=== PATIENT | male | born 1985 | race Caucasian/White ===

== ENCOUNTER 2019-07-10 14:01 | Outpatient (CLI) | payer OTHER, SELFPAY ==
--- NOTE | ~2019-07-10 | CT_ITS ---
EXAMINATION: CT abdomen pelvis w con EXAM DATE: 07/10/2019 15:05 INDICATION: Crohn's disease and small intestine. Rectal bleeding. TECHNIQUE: Spiral CT of the abdomen and pelvis was performed following intravenous injection of 100 m L Omnipaque 350. Axial, coronal and sagittal images were reviewed. The dose-length product (DLP) fo r this examination was 736.97 mGy-cm. The exposure was tailored according to patient size (auto mA e xposure control), and iterative reconstruction (ASIR) was used as additional dose reduction technique . Comparison is made to prior examination from 04/08/2013. FINDINGS: Free intraperitoneal air has resolved. The liver, spleen, adrenal glands and pancreas are unremarkable. Gallbladder not identified, patient likely has had cholecystectomy. Portal and spleni c veins are patent. Kidneys enhance symmetrically. There is no hydronephrosis. The prostate is un remarkable. The bladder is unremarkable. There is no retroperitoneal or pelvic lymphadenopathy. Severely distended fluid-filled stomach. There is been cecal resection with unremarkable ileocecal an astomosis site. Colonic fluid. No free intraperitoneal gas. The heart is normal in size. There a re no pericardial or pleural effusions. The lung bases are unremarkable. The bones are unremarkable . IMPRESSION: 1. Colonic fluid, distended stomach. No colonic wall thickening or small bowel dilation. 2. Surgical changes from cecal resection, cholecystectomy. Reviewed, dictated and finalized at location A.
--- NOTE | ~2019-07-10 | XR_ITS ---
EXAMINATION: XR chest 2V DATE: 07/10/2019 14:47 INDICATION: Crohn disease. High risk medication use. TECHNIQUE: Frontal and lateral views of the chest were obtained. COMPARISON: Chest 2 views 12/07/2016 FINDINGS: The chest demonstrates clear lungs without pneumonia, pleural effusion, or pneumothorax. Th e heart size is normal. There are surgical clips in right abdomen. IMPRESSION: 1. No acute cardiopulmonary disease. Reviewed, dictated and finalized at location A.
[2019-07-10 14:55] LABS: Estimated Glomerular Filt Rate > 60
== END 2019-07-10 14:02 | disposition home or self-care (01) ==
LOC: ANHIMG 14:11
PROVIDERS: PCP Internal Medicine; Visit Provider Internal Medicine Gastroenterology
DX: K50.00 Crohn's disease of small intestine without complications (principal); K62.5 Hemorrhage of anus and rectum; Z79.899 Other long term (current) drug therapy
CPT/HCPCS: 36415; 71046; 74177; Q9967

== ENCOUNTER 2019-07-25 00:27 | Outpatient (CLI) | payer OTHER, SELFPAY ==
[2019-07-25 18:12] LABS: SARS-CoV-2 RNA PCR Negative
== END 2019-07-25 00:28 | disposition home or self-care (01) ==
LOC: ANHCOVIDDT 00:27
PROVIDERS: PCP Internal Medicine; Visit Provider Internal Medicine Gastroenterology
DX: Z20.828 Contact with and (suspected) exposure to other viral communicable diseases (principal); Z01.812 Encounter for preprocedural laboratory examination
CPT/HCPCS: 87635; C9803; U0003

== ENCOUNTER 2019-07-27 02:13 | Day surgery (SDC) | payer OTHER, SELFPAY ==
[2019-07-20 13:39] VITALS: BMI 28.7
[2019-07-27 08:10] VITALS: BP 120/78; PULSE 95; RESP 14; TEMP 36.4; O2SAT 98; BMI 28.6
[2019-07-27] MEDS: LACTATED RINGERS 1,000 ML 150 ML IV CONT (08:24)
--- NOTE | 2019-07-27 08:29 | PM.IMHP ---
H&P: HPI History of Present Illness Chief complaint: abnormal CT of the Abdomen, Crohns Narrative: Reason for visit colonoscopy And EGD. This very pleasant gentleman seen in consultation at the request of the primary. Impression: Crohn's disease status post ileocolectomy. Abnormal CT imaging with dilated stomach. We will evaluate for underlying peptic ulcer disease and outlet obstruction. Hypertension. Recommendation: EGD and colonoscopy. History: This very pleasant gentleman is a history of Crohn's disease. He is status post ileocolectomy. He is presently taking Stelara for his Crohn's disease. He continues to have occasional rectal bleeding and diarrhea. Fever, chills, night sweats, mouth sores and rashes or tonight. Significant abdominal pain, nausea, vomiting, hematemesis, dysphagia and odynophagia deny. Patient did undergo CT imaging which revealed evidence of dilated stomach and evidence of previous ileal colectomy. He is here for EGD and colonoscopy. Physical examination: General: very pleasant patient in no acute distress. HEENT: Head was normocephalic sclerae is clear mouth without masses neck was supple. Heart: Rate rhythm regular without S3 or S4. Lungs: CTA. Abdomen: Soft with no guarding or rigidity. Bowel sounds were active. Neurologic: Cranial nerves 2 through 12 intact. No focal defects. No clonus. Musculoskeletal system: Revealed no joint tenderness or swelling no muscle atrophy. Extremities: Reveal no significant edema. Skin: Warm and dry with normal turgor. Mental status: intact. Patient is alert and oriented. Review of Systems Review of Systems: All systems reviewed & are unremarkable except as noted in HPI and below PMFSH Past Medical History Medical History (Updated 07/27/19 @ 08:06 by Robert Wills DO) Crohn's disease HTN (hypertension) Surgical History Surgical History (Updated 07/27/19 @ 08:28 by Robert Wills DO) S/P colectomy ileal-colectomy Family History Family History (Updated 10/05/13 @ 07:13 by DOCTOR UNKNOWN) Grandparent Cerebrovascular accident Family history of autoimmune disorder Mother Hypertension Father Family history of colitis Other Family history of gastrointestinal disorder Social History Social History Smoking status: Never smoker Alcohol intake: current Meds Home Medications and Allergies Home Medications Medication Instructions Recorded Confirmed Type multivitamin 1 tablet PO DAILY 01/10/19 07/27/19 History ustekinumab 90 mg/mL subcutaneous 90 mg SUB-Q ONCE 01/10/19 07/27/19 History syringe lisinopril 20 mg tablet 20 mg PO DAILY #90 tablet 06/28/19 07/27/19 Rx mecobalamin (vitamin B12) 5,000 mcg PO DAILY 07/20/19 07/27/19 History Allergies Allergy/AdvReac Type Severity Reaction Status Date / Time No Known Allergies Allergy Verified 07/27/19 08:06 Vital Signs Vital Signs - 24 hr 07/27/19 08:10 Temperature 36.4 C L Pulse Rate 95 Respiratory Rate 14 Blood Pressure 120/78 Pulse Oximetry 98
--- NOTE | 2019-07-27 08:37 | WPDANESEPPF ---
Anes - Initial Pre Proc Eval Procedure: Operation Date: 07/27/19 09:30 Proposed Procedures p Esophagogastroduodenoscopy & Colonoscopy - Robert Wills DO Date/Time: 07/27/19 08:37 Surgeon: Robert Wills DO Pre Op Diagnosis: abnormal CT of the Abdomen, Crohns Patient Data Age: 34 Gender: M Height: 6 ft Weight: 95.9 kg Last Vital Signs Temp 97.5 F L 07/27/19 08:10 Pulse 95 07/27/19 08:10 Resp 14 07/27/19 08:10 BP 120/78 07/27/19 08:10 Pulse Ox 98 07/27/19 08:10 Allergies Allergy/AdvReac Type Severity Reaction Status Date / Time No Known Allergies Allergy Verified 07/27/19 08:06 Home Medications Medication Instructions Recorded Confirmed Type multivitamin 1 tablet PO DAILY 01/10/19 07/27/19 History ustekinumab 90 mg/mL subcutaneous 90 mg SUB-Q ONCE 01/10/19 07/27/19 History syringe lisinopril 20 mg tablet 20 mg PO DAILY #90 tablet 06/28/19 07/27/19 Rx mecobalamin (vitamin B12) 5,000 mcg PO DAILY 07/20/19 07/27/19 History Patient hx anesthesia problems: none Family hx anesthesia problems: none [facility] Past Medical History Medical History (Updated 07/27/19 @ 08:06 by Robert Wills DO) Crohn's disease HTN (hypertension) Surgical History Surgical History (Updated 07/27/19 @ 08:28 by Robert Wills DO) S/P colectomy ileal-colectomy Family History Family History (Updated 10/05/13 @ 07:13 by DOCTOR UNKNOWN) Grandparent Cerebrovascular accident Family history of autoimmune disorder Mother Hypertension Father Family history of colitis Other Family history of gastrointestinal disorder Social History Social History Smoking status: Never smoker Alcohol intake: current Anes - Eval Final PreProcedure Day of Procedure 07/27/19 08:37 Patient weight: normal Heart: regular rate and rhythm Lungs: clear to auscultation Airway: Mallampati scale class II Neurological: alert and oriented Last oral intake: >/= 8 hours ASA classification: II Emergent: no Anesthetic plan: proceed Anesthesia type and monitoring: general GIVS and standard monitoring Informed Consent: The patient's anesthetic plan and its attendant risks and benefits were discussed with the patient/family/POA. Questions were solicited and answers provided to the satisfaction of the patient/family/POA.
[2019-07-27 09:16] VITALS: BP 98/66; PULSE 99; RESP 19; O2SAT 96
[2019-07-27 09:26] VITALS: BP 113/69; PULSE 95; RESP 19; O2SAT 97
[2019-07-27 09:36] VITALS: BP 103/71; PULSE 95; RESP 19; O2SAT 97
== END 2019-07-27 09:54 | disposition home or self-care (01) ==
PROVIDERS: PCP Internal Medicine; Visit Provider Internal Medicine Gastroenterology
PROC: 0DJ08ZZ Inspection of Upper Intestinal Tract, Via Natural or Artificial Opening Endoscopic (ICD-10-PCS; CPT 43235; principal; 2019-07-27 09:30)
DX: K28.9 Gastrojejunal ulcer, unspecified as acute or chronic, without hemorrhage or perforation (principal); K64.8 Other hemorrhoids; K25.9 Gastric ulcer, unspecified as acute or chronic, without hemorrhage or perforation; K52.9 Noninfective gastroenteritis and colitis, unspecified; K29.50 Unspecified chronic gastritis without bleeding; K44.9 Diaphragmatic hernia without obstruction or gangrene; K50.90 Crohn's disease, unspecified, without complications; Z98.0 Intestinal bypass and anastomosis status; Z90.49 Acquired absence of other specified parts of digestive tract; I10 Essential (primary) hypertension
CPT/HCPCS: 45380; 43239; 87081; 88305; J2704; J7120

== ENCOUNTER 2019-11-01 08:16 | Outpatient (CLI) | payer OTHER, SELFPAY ==
[2019-11-01 09:30] LABS: HIV 1/2 Ab P24 Ag Result Negative (Negative)
== END 2019-11-01 08:17 | disposition home or self-care (01) ==
PROVIDERS: PCP Internal Medicine; Visit Provider Internal Medicine
DX: A64 Unspecified sexually transmitted disease (principal)
CPT/HCPCS: 36415; 86703; G0432

== ENCOUNTER 2019-12-12 00:57 | Outpatient (CLI) | payer OTHER, SELFPAY ==
[2019-12-12 20:51] LABS: SARS-CoV-2 RNA PCR Negative
== END 2019-12-12 00:58 | disposition home or self-care (01) ==
LOC: ANHCOVIDDT 00:57
PROVIDERS: PCP Internal Medicine; Visit Provider Internal Medicine Gastroenterology
DX: Z01.812 Encounter for preprocedural laboratory examination (principal); Z20.828 Contact with and (suspected) exposure to other viral communicable diseases
CPT/HCPCS: 87635; C9803; U0003

== ENCOUNTER 2019-12-14 01:39 | Day surgery (SDC) | payer OTHER, SELFPAY ==
[2019-12-06 14:07] VITALS: BMI 29.0
--- NOTE | 2019-12-14 08:33 | WPDANESEPPF ---
Anes - Initial Pre Proc Eval Procedure: Operation Date: 12/14/19 09:30 Proposed Procedures p Esophagogastroduodenoscopy - Robert Wills DO Date/Time: 12/14/19 08:33 Surgeon: Robert Wills DO Pre Op Diagnosis: Gastritis Patient Data Age: 34 Gender: M Height: 1.83 m Weight: 97 kg Allergies Allergy/AdvReac Type Severity Reaction Status Date / Time No Known Allergies Allergy Verified 12/06/19 14:05 Home Medications Medication Instructions Recorded Confirmed Type multivitamin 1 tablet PO DAILY 01/10/19 12/06/19 History ustekinumab 90 mg/mL subcutaneous See Rx Instructions .ROUTE .COMPLEX 01/10/19 12/06/19 History syringe lisinopril 20 mg tablet 20 mg PO DAILY #90 tablet 06/28/19 12/06/19 Rx mecobalamin (vitamin B12) 5,000 mcg PO DAILY 07/20/19 12/06/19 History hydrocortisone [Anusol-HC] 1 applic [place] DAILY PRN 07/27/19 12/06/19 History omeprazole 40 mg PO DAILY 07/27/19 12/06/19 History calcium 600 mg PO BID 12/06/19 12/06/19 History Patient hx anesthesia problems: none Family hx anesthesia problems: none PMFSH Past Medical History Medical History (Updated 08/29/19 @ 13:54 by Price Sin MD) Crohn's disease Gastric ulcer HTN (hypertension) Surgical History Surgical History (Updated 07/27/19 @ 08:28 by Robert Wills DO) S/P colectomy ileal-colectomy Family History Family History (Updated 10/05/13 @ 07:13 by DOCTOR UNKNOWN) Grandparent Cerebrovascular accident Family history of autoimmune disorder Mother Hypertension Father Family history of colitis Other Family history of gastrointestinal disorder Social History Social History Smoking status: Never smoker Alcohol intake: current Drinks per week: 3 Living arrangements: alone Gender identity (if verbalized by the patient): Male Spiritual care concerns: No Anes - Eval Final PreProcedure Day of Procedure 12/14/19 08:33 Patient weight: overweight Heart: regular rate and rhythm Lungs: clear to auscultation and normal air movement Airway: Mallampati scale class II Neurological: alert and oriented Last oral intake: >/= 8 hours ASA classification: II Emergent: no Anesthetic plan: proceed Anesthesia type and monitoring: general GIVS Informed Consent: The patient's anesthetic plan and its attendant risks and benefits were discussed with the patient/family/POA. Questions were solicited and answers provided to the satisfaction of the patient/family/POA.
[2019-12-14 08:38] VITALS: BP 129/74; PULSE 68; RESP 15; TEMP 36.2; O2SAT 100; BMI 29.2
[2019-12-14] MEDS: LACTATED RINGERS 1,000 ML 150 ML IV CONT (08:49)
--- NOTE | 2019-12-14 08:57 | PM.IMHP ---
H&P: HPI History of Present Illness Date/Time: 12/14/19 08:57 Chief complaint: Gastritis Narrative: Reason for visit is EGD. This very pleasant gentleman seen in consultation at the request of the primary physician. Impression: History gastric ulcer disease. The patient is here to assess for healing. Crohn's disease. Hypertension. Recommendation: EGD. History: This very pleasant gentleman has a history gastric ulcer disease. He is presently on treatment. He is here to review systems negative at this time. He does have history of Crohn's disease also. He is here for endoscopic evaluation to assess for healing of his gastric ulcer disease. Physical examination: General: very pleasant patient in no acute distress. HEENT: Head was normocephalic sclerae is clear mouth without masses neck was supple. Heart: Rate rhythm regular without S3 or S4. Lungs: CTA. Abdomen: Soft with no guarding or rigidity. Bowel sounds were active. Neurologic: Cranial nerves 2 through 12 intact. No focal defects. No clonus. Musculoskeletal system: Revealed no joint tenderness or swelling no muscle atrophy. Extremities: Reveal no significant edema. Skin: Warm and dry with normal turgor. Mental status: intact. Patient is alert and oriented. Review of Systems Review of Systems: All systems reviewed & are unremarkable except as noted in HPI and below PMFSH Past Medical History Medical History (Updated 08/29/19 @ 13:54 by Price Sin MD) Crohn's disease Gastric ulcer HTN (hypertension) Surgical History Surgical History (Updated 07/27/19 @ 08:28 by Robert Wills DO) S/P colectomy ileal-colectomy Family History Family History (Updated 10/05/13 @ 07:13 by DOCTOR UNKNOWN) Grandparent Cerebrovascular accident Family history of autoimmune disorder Mother Hypertension Father Family history of colitis Other Family history of gastrointestinal disorder Social History Social History Smoking status: Never smoker Alcohol intake: current Drinks per week: 3 Living arrangements: alone Gender identity (if verbalized by the patient): Male Spiritual care concerns: No Meds Home Medications and Allergies Home Medications Medication Instructions Recorded Confirmed Type multivitamin 1 tablet PO DAILY 01/10/19 12/14/19 History ustekinumab 90 mg/mL subcutaneous See Rx Instructions .ROUTE .COMPLEX 01/10/19 12/14/19 History syringe lisinopril 20 mg tablet 20 mg PO DAILY #90 tablet 06/28/19 12/14/19 Rx mecobalamin (vitamin B12) 5,000 mcg PO DAILY 07/20/19 12/14/19 History hydrocortisone [Anusol-HC] 1 applic [place] DAILY PRN 07/27/19 12/14/19 History omeprazole 40 mg PO DAILY 07/27/19 12/14/19 History calcium 600 mg PO BID 12/06/19 12/14/19 History Allergies Allergy/AdvReac Type Severity Reaction Status Date / Time No Known Allergies Allergy Verified 12/06/19 14:05 Vital Signs Vital Signs - 24 hr 12/14/19 08:38 Temperature 36.2 C L Pulse Rate 68 Respiratory Rate 15 Blood Pressure 129/74 Pulse Oximetry 100
[2019-12-14 09:52] VITALS: BP 111/69; PULSE 70; RESP 17; O2SAT 100
[2019-12-14 10:02] VITALS: BP 106/68; PULSE 81; RESP 21; O2SAT 99
[2019-12-14 10:12] VITALS: BP 108/72; PULSE 81; RESP 18; O2SAT 99
--- NOTE | 2019-12-14 11:06 | SUR.PHASEII ---
1020 abrasion noted to inside of bottom lip.
== END 2019-12-14 10:30 | disposition home or self-care (01) ==
PROVIDERS: PCP Internal Medicine; Visit Provider Internal Medicine Gastroenterology
PROC: 0DJ08ZZ Inspection of Upper Intestinal Tract, Via Natural or Artificial Opening Endoscopic (ICD-10-PCS; CPT 43235; principal; 2019-12-14 09:30)
DX: Z09 Encounter for follow-up examination after completed treatment for conditions other than malignant neoplasm (principal); K29.80 Duodenitis without bleeding; Z87.11 Personal history of peptic ulcer disease; K50.90 Crohn's disease, unspecified, without complications; I10 Essential (primary) hypertension; Z90.49 Acquired absence of other specified parts of digestive tract; Z98.0 Intestinal bypass and anastomosis status
CPT/HCPCS: 43239; 87081; J2704; J7120

== ENCOUNTER 2020-02-08 12:51 | Outpatient (CLI) | payer OTHER, SELFPAY ==
[2020-02-08 13:26] LABS: Magnesium 1.7 mg/dL (1.6-2.3)
[2020-02-08 14:06] LABS: Vitamin D 25 Hydroxy 51.6 ng/mL
== END 2020-02-08 12:52 | disposition home or self-care (01) ==
PROVIDERS: PCP Internal Medicine; Visit Provider Internal Medicine Gastroenterology
DX: E55.9 Vitamin D deficiency, unspecified (principal)
CPT/HCPCS: 36415; 82306; 83735

== ENCOUNTER 2020-12-17 00:16 | Day surgery (SDC) | payer OTHER, SELFPAY ==
[2020-11-27 14:15] VITALS: BMI 28.0
--- NOTE | 2020-12-16 14:04 | WPDANESEPPF ---
Anes - Initial Pre Proc Eval Procedure: Operation Date: 12/17/20 07:30 Proposed Procedures p Colonoscopy - Siva De La Rosa MD Date/Time: 12/16/20 14:04 Surgeon: Siva De La Rosa MD Pre Op Diagnosis: crohn's disease Patient Data Age: 35 Gender: M Height: 1.83 m Weight: 93.63 kg Allergies Allergy/AdvReac Type Severity Reaction Status Date / Time No Known Allergies Allergy Verified 12/17/20 06:24 Home Medications Medication Instructions Recorded Confirmed Type multivitamin 1 tablet PO DAILY 01/10/19 11/27/20 History mecobalamin (vitamin B12) 5,000 mcg PO DAILY 07/20/19 11/27/20 History hydrocortisone [Anusol-HC] 1 applic [place] DAILY PRN 07/27/19 11/27/20 History omeprazole 40 mg PO DAILY 07/27/19 11/27/20 History calcium 600 mg PO DAILY 12/06/19 11/27/20 History lisinopril 20 mg tablet 20 mg PO DAILY #90 tablet 06/24/20 11/27/20 Rx cholecalciferol (vitamin D3) 25 25 mcg PO DAILY 07/02/20 11/27/20 History mcg (1,000 unit) capsule folic acid 1 mg tablet 1 mg PO DAILY #1 tablet 07/02/20 11/27/20 Rx omega 3-ksa-mgh-fish oil 1,200 mg 2 cap PO DAILY cap 07/02/20 11/27/20 History (144 mg-216 mg) capsule ustekinumab 90 mg/mL subcutaneous See Rx Instructions .ROUTE .COMPLEX 07/02/20 11/27/20 History syringe fenofibrate 54 mg tablet 54 mg PO DAILY #90 tablet 09/06/20 11/27/20 Rx Patient hx anesthesia problems: none Family hx anesthesia problems: none Results Review: All pre-operative results and documents have been reviewed as part of the pre-operative evaluation. [facility] Past Medical History Medical History (Updated 11/07/20 @ 10:04 by Siva De La Rosa MD) Crohn's disease Crohn's disease of ileum Gastric ulcer HTN (hypertension) Surgical History Surgical History (Updated 11/07/20 @ 10:04 by Siva De La Rosa MD) S/P colectomy ileal-colectomy Family History Family History Grandparent Cerebrovascular accident Family history of autoimmune disorder Mother Hypertension Father Family history of colitis Other Family history of gastrointestinal disorder Social History Social History (Updated 11/07/20 @ 09:29 by Laura Moore CMA) Smoking status: Never smoker Second hand tobacco smoke exposure: No Alcohol intake: current Drinks per week: 3 Alcohol use details: socially Substance use: never Substance use type: does not use Living arrangements: with family Gender identity (if verbalized by the patient): Male Spiritual care concerns: No Anes - Eval Final PreProcedure Day of Procedure 12/16/20 14:04 Patient weight: overweight Heart: regular rate and rhythm Lungs: clear to auscultation and normal air movement Airway: Mallampati scale class II Neurological: alert and oriented Last oral intake: >/= 8 hours ASA classification: II Emergent: no Anesthetic plan: proceed Anesthesia type and monitoring: general GIVS Results Review: All pre-operative results and documents have been reviewed as part of the pre-operative evaluation. Informed Consent: The patient's anesthetic plan and its attendant risks and benefits were discussed with the patient/family/POA. Questions were solicited and answers provided to the satisfaction of the patient/family/POA.
[2020-12-17 06:26] VITALS: BP 131/84; PULSE 63; RESP 18; TEMP 36.1; O2SAT 100
[2020-12-17] MEDS: LACTATED RINGERS 1,000 ML 150 ML IV CONT (06:37)
--- NOTE | 2020-12-17 07:31 | PM.HPGS ---
History of Present Illness History of Present Illness Consent: Risks, benefits, and alternatives have been discussed and questions answered. Patient agrees to proceed with procedure. Chief complaint: crohn's disease Narrative: Everett Yarbrough is a 35 year old male here for colonoscopy, he was diagnosed with Crohn's at 12yo and had partial sb resection, in the past on humira and for last few years on stelara. Last colonoscopy 1 year ago showed ulcerated site at ileocolonic site Review of Systems Constitutional: Constitutional: Denies headache(s) and Denies weakness Eyes: Eyes: Denies blurry vision ENT: Reports Normal hearing present, Denies headache(s) and Denies neck pain Cardiovascular: Cardiovascular: Denies chest pain and Denies dyspnea Respiratory: Respiratory: Denies dyspnea Gastrointestinal: Gastrointestinal: Reports no additional gastrointestinal complaints Genitourinary: Genitourinary: Denies dysuria Musculoskeletal: Musculoskeletal: Denies neck pain Integumentary/Breasts: Skin/Breast: Denies dry skin Neurologic: Reports Normal hearing present, Denies headache(s) and Denies weakness Psychiatric: Psychiatric: Denies anxiety Endocrine: Endocrine: Denies change in body appearance Hematologic/Lymphatic: Hematologic/Lymphatic: Denies easy bleeding Allergic/Immunologic: Allergic/Immunologic: Denies urticaria PMFSH Past Medical History Medical History (Updated 11/07/20 @ 10:04 by Siva De La Rosa MD) Crohn's disease Crohn's disease of ileum Gastric ulcer HTN (hypertension) Surgical History Surgical History (Updated 11/07/20 @ 10:04 by Siva De La Rosa MD) S/P colectomy ileal-colectomy Family History Family History Grandparent Cerebrovascular accident Family history of autoimmune disorder Mother Hypertension Father Family history of colitis Other Family history of gastrointestinal disorder Social History Social History (Updated 11/07/20 @ 09:29 by Laura Moore CMA) Smoking status: Never smoker Second hand tobacco smoke exposure: No Alcohol intake: current Drinks per week: 3 Alcohol use details: socially Substance use: never Substance use type: does not use Living arrangements: with family Gender identity (if verbalized by the patient): Male Spiritual care concerns: No Meds Home Medications and Allergies Home Medications Medication Instructions Recorded Confirmed Type multivitamin 1 tablet PO DAILY 01/10/19 11/27/20 History mecobalamin (vitamin B12) 5,000 mcg PO DAILY 07/20/19 11/27/20 History hydrocortisone [Anusol-HC] 1 applic [place] DAILY PRN 07/27/19 11/27/20 History omeprazole 40 mg PO DAILY 07/27/19 11/27/20 History calcium 600 mg PO DAILY 12/06/19 11/27/20 History lisinopril 20 mg tablet 20 mg PO DAILY #90 tablet 06/24/20 11/27/20 Rx cholecalciferol (vitamin D3) 25 25 mcg PO DAILY 07/02/20 11/27/20 History mcg (1,000 unit) capsule folic acid 1 mg tablet 1 mg PO DAILY #1 tablet 07/02/20 11/27/20 Rx omega 6-mws-byh-fish oil 1,200 mg 2 cap PO DAILY cap 07/02/20 11/27/20 History (144 mg-216 mg) capsule ustekinumab 90 mg/mL subcutaneous See Rx Instructions .ROUTE .COMPLEX 07/02/20 11/27/20 History syringe fenofibrate 54 mg tablet 54 mg PO DAILY #90 tablet 09/06/20 11/27/20 Rx Allergies Allergy/AdvReac Type Severity Reaction Status Date / Time No Known Allergies Allergy Verified 12/17/20 06:24 Vital Signs Vital Signs - 24 hr 12/17/20 06:26 Temperature 97 F L Pulse Rate 63 Respiratory Rate 18 Blood Pressure 131/84 Pulse Oximetry 100 Exam Const: General: comfortable and no acute distress HENMT: General nose exam: Normal nares present Eyes: General: appearance normal, both eyes and all related structures Neck: Neck: no JVD Resp: Auscultation: clear to auscultation bilaterally Cardio: Rate: regular rate Rhythm: re
[2020-12-17 07:49] VITALS: BP 101/49; PULSE 66; RESP 18; O2SAT 100
[2020-12-17 07:59] VITALS: BP 120/76; PULSE 60; RESP 14; O2SAT 100
[2020-12-17 08:09] VITALS: BP 133/83; PULSE 67; RESP 17; O2SAT 100
== END 2020-12-17 08:14 | disposition home or self-care (01) ==
PROVIDERS: PCP Internal Medicine; Visit Provider Internal Medicine Gastroenterology
PROC: 0DJD8ZZ Inspection of Lower Intestinal Tract, Via Natural or Artificial Opening Endoscopic (ICD-10-PCS; CPT 45378; principal; 2020-12-17 07:30)
DX: K50.90 Crohn's disease, unspecified, without complications (principal); Z98.0 Intestinal bypass and anastomosis status; Z90.49 Acquired absence of other specified parts of digestive tract; I10 Essential (primary) hypertension; Z87.11 Personal history of peptic ulcer disease
CPT/HCPCS: 45380; 88305; J2704; J7120

== ENCOUNTER → 2021-01-11 01:08 | Outpatient (CLI) | payer OTHER, SELFPAY ==
[2021-01-11 12:24] LABS: Influenza Control Positive
[2021-01-11 18:54] LABS: SARS-CoV-2 RNA PCR Positive
== END ==
PROVIDERS: PCP Internal Medicine; Visit Provider Internal Medicine
DX: U07.1 COVID-19 (principal); R68.89 Other general symptoms and signs
CPT/HCPCS: 87804; C9803; U0003; U0005

== ENCOUNTER 2021-03-19 09:06 | Outpatient (CLI) | payer OTHER, SELFPAY ==
[2021-03-19 10:07] LABS: Hematocrit 43.3 % (42.0-52.0); Hemoglobin 14.9 g/dL (14.0-18.0); Mean Corpuscular HGB Conc 34.4 g/dl (32-36); Mean Corpuscular Hemoglobin 30.6 pg (26-34); Mean Corpuscular Volume 88.9 fl (80-100); Platelet Count Result 221 k/mm3 (150-375); Red Blood Count 4.87 M/mm3 (4.6-6.20); Red Cell Distribution Width 12.5 % (11.5-14.5); White Blood Count 6.1 K/mm3 (4.5-10.0)
[2021-03-19 10:21] LABS: Alanine Aminotransferase 35 U/L (4-50); Alkaline Phosphatase 68 U/L (38-126); Anion Gap 9 mmol/L (8-16); Aspartate Amino Transferase 28 U/L (17-59); Bilirubin,Total 0.7 mg/dL (0.2-1.3); Blood Urea Nitrogen 19 mg/dL (9-20); CRP < 0.5 mg/dL (<1.0); Carbon Dioxide 23 mmol/L (22-30); Chloride 107 mmol/L (98-107); Estimated Glomerular Filt Rate > 60; Glucose 102 mg/dL (65-110); Potassium 4.6 mmol/L (3.4-5.0); Sodium 139 mmol/L (137-145)
[2021-03-19 10:46] LABS: Erythrocyte Sedimentation Rate 4 mm/hr (0-20)
[2021-03-19 10:51] LABS: Hepatitis B Surface Antigen Negative (Negative)
[2021-03-19 11:08] LABS: Hepatitis B Surface Anti Res Negative
[2021-03-21 14:42] LABS: NIL 0.01 IU/mL; Quantiferon TB Plus, 1T NEGATIVE (NEGATIVE); TB1-NIL 0.01 IU/mL
[2021-03-22 17:43] LABS: Hepatitis B Core Ab Total Nonreactive (Nonreactive)
== END 2021-03-19 09:07 | disposition home or self-care (01) ==
PROVIDERS: PCP Internal Medicine; Visit Provider Internal Medicine Gastroenterology
DX: K50.019 Crohn's disease of small intestine with unspecified complications (principal); K50.00 Crohn's disease of small intestine without complications; Z90.49 Acquired absence of other specified parts of digestive tract
CPT/HCPCS: 36415; 80053; 85027; 85652; 86140; 86480; 86704; 86706; 87340

== ENCOUNTER 2021-12-02 15:22 | Outpatient (CLI) | payer OTHER, SELFPAY ==
--- NOTE | ~2021-12-02 | MR_ITS ---
EXAMINATION: MR brain/brain stem wo/w con DATE: 12/02/2021 16:03 INDICATION: Headache. TECHNIQUE: Magnetic resonance imaging (MRI) of the brain and brainstem was performed without and with 19 mL MultiHance intravenous contrast. 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 There is a developmental ve nous anomaly in left frontal lobe. There is a chronic focus of old blood products in right temporal l obe. There is no acute ischemic infarct. The ventricles are normal in size. The orbits are normal. Th ere is mild mucosal thickening in the ethmoid sinuses. The mastoid air cells are normal. IMPRESSION: 1. 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 Reviewed, dictated and finalized at location A.
== END 2021-12-02 15:23 | disposition home or self-care (01) ==
LOC: ANHIMG 15:28
PROVIDERS: PCP Internal Medicine; Visit Provider Internal Medicine
DX: G44.82 Headache associated with sexual activity (principal)
CPT/HCPCS: 70553; A9577

== ENCOUNTER 2023-01-21 09:36 | Outpatient (CLI) | payer OTHER, SELFPAY ==
[2023-01-21 10:06] LABS: Hematocrit 44.1 % (42.0-52.0); Hemoglobin 14.6 g/dL (14.0-18.0); Mean Corpuscular HGB Conc 33.1 g/dl (32-36); Mean Corpuscular Hemoglobin 29.6 pg (26-34); Mean Corpuscular Volume 89.3 fl (80-100); Mean Platelet Volume 10.9 fl (7.4-10.4); Platelet Count Result 194 k/mm3 (150-375); Red Blood Count 4.94 M/mm3 (4.6-6.20); Red Cell Distribution Width 13.1 % (11.5-14.5); White Blood Count 4.9 K/mm3 (4.5-10.0)
[2023-01-21 10:23] LABS: Alanine Aminotransferase 53 U/L (6-50); Albumin Level 4.8 g/dL (3.5-5.1); Alkaline Phosphatase 76 U/L (38-126); Anion Gap 9 mmol/L (8-16); Aspartate Amino Transferase 36 U/L (17-59); Bilirubin,Total 0.8 mg/dL (0.2-1.3); Blood Urea Nitrogen 15 mg/dL (9-20); CRP < 0.5 mg/dL (<1.0); Calcium 9.9 mg/dL (8.4-10.2); Carbon Dioxide 27 mmol/L (22-30); Chloride 106 mmol/L (98-107); Estimated Glomerular Filt Rate > 60; Glucose 102 mg/dL (65-110); Potassium 4.3 mmol/L (3.4-5.0); Sodium 142 mmol/L (137-145)
[2023-01-21 10:44] LABS: Erythrocyte Sedimentation Rate 2 mm/hr (0-20)
[2023-01-21 11:24] LABS: Folic Acid 13.2 ng/mL (2.76->20)
[2023-01-21 11:27] LABS: Iron 145 ug/dL (49-181)
[2023-01-21 11:36] LABS: Percent Iron Saturation 35 % (20-50)
[2023-01-21 12:20] LABS: Hepatitis B Surface Antigen Negative (Negative)
[2023-01-21 12:37] LABS: Hepatitis B Surface Anti Res Negative
[2023-01-25 14:07] LABS: Hepatitis B Core Ab Total Nonreactive (Nonreactive)
[2023-01-25 16:48] LABS: NIL 0.01 IU/mL; Quantiferon TB Plus, 1T NEGATIVE (NEGATIVE)
[2023-01-26 01:09] LABS: Vitamin D 1,25 (OH)2 Total 37 pg/mL (18-72); Vitamin D2 1,25 (OH)2 <8 pg/mL; Vitamin D3 1,25 (OH)2 37 pg/mL
== END 2023-01-21 09:37 | disposition home or self-care (01) ==
LOC: ANHLAB 09:38
PROVIDERS: PCP Nurse Practitioner; Visit Provider Nurse Practitioner
DX: K50.90 Crohn's disease, unspecified, without complications (principal); Z79.899 Other long term (current) drug therapy; K50.00 Crohn's disease of small intestine without complications; Z90.49 Acquired absence of other specified parts of digestive tract
CPT/HCPCS: 36415; 80053; 82607; 82652; 82728; 82746; 83540; 83550; 85027; 85652; 86140; 86480; 86704; 86706; 87340

== ENCOUNTER 2023-11-18 07:27 | Day surgery (SDC) | payer OTHER, SELFPAY ==
[2023-08-03 10:43] VITALS: BMI 30.4
[2023-11-02 15:01] VITALS: BMI 29.9
--- NOTE | 2023-11-18 07:08 | WPDANESEPPF ---
Anes - Initial Pre Proc Eval Procedure: Operation Date: 11/18/23 12:00 Proposed Procedures p Diagnostic Colonoscopy - Robert Montes MD Date/Time: 11/18/23 07:08 Surgeon: Robert Montes MD Pre Op Diagnosis: Crohns Disease Patient Data Age: 38 Gender: M Height: 1.83 m Weight: 100 kg Allergies Allergy/AdvReac Type Severity Reaction Status Date / Time No Known Allergies Allergy Verified 11/18/23 08:03 Home Medications Medication Instructions Recorded Confirmed Type multivitamin 1 tablet PO DAILY 01/10/19 11/18/23 History mecobalamin (vitamin B12) 1,000 5,000 mcg PO DAILY 07/20/19 11/18/23 History mcg chewable tablet calcium 600 mg capsule 600 mg PO DAILY 12/06/19 11/18/23 History cholecalciferol (vitamin D3) 25 25 mcg PO DAILY 07/02/20 11/18/23 History mcg (1,000 unit) capsule rosuvastatin 10 mg tablet (Crestor) 10 mg PO DAILY #90 tabs 04/02/23 11/18/23 Rx ustekinumab 90 mg/mL subcutaneous See Rx Instructions .Route 08/24/23 11/18/23 Rx syringe (Stelara) .COMPLEX #1 mL lisinopril 20 mg tablet 20 mg PO DAILY #90 tabs 09/15/23 11/18/23 Rx doxycycline hyclate 50 mg capsule 50 mg PO DAILY PRN other 11/02/23 11/18/23 History Patient hx anesthesia problems: none Family hx anesthesia problems: none Results Review: All pre-operative results and documents have been reviewed as part of the pre-operative evaluation. [facility] Past Medical History Medical History (Updated 11/17/23 @ 12:10 by Maximo Spencer DO) Acne vulgaris Crohn's disease Crohn's disease of ileum Gastric ulcer High risk medication use HTN (hypertension) Hx of gastric ulcer IFG (impaired fasting glucose) Long-term current use of ustekinumab Seizure Surgical History Surgical History S/P colectomy ileal-colectomy Family History Family History Grandparent Cerebrovascular accident Family history of autoimmune disorder Mother Hypertension Father Family history of colitis Other Family history of gastrointestinal disorder Social History Social History Smoking status: Never smoker Second hand tobacco smoke exposure: No Alcohol intake: current Drinks per week: 2 Alcohol use details: occasionally Substance use: never Substance use type: does not use Lack of Transportation: No Lack of Food: Never True Current Housing: I Have Housing Concerned About Future Housing: No Difficulty Paying Gas/Electric Bills: No Difficulty Paying for Meds: No Currently Unemployed: No Education: Associate Degree Difficulty w/ Childcare or Family Care: No Living arrangements: with family Gender identity (if verbalized by the patient): Male Spiritual care concerns: No Anes - Eval Final PreProcedure Day of Procedure 11/18/23 07:08 Patient weight: obese Heart: regular rate and rhythm Lungs: clear to auscultation Airway: Mallampati scale class II Neurological: alert and oriented Last oral intake: >/= 8 hours ASA classification: III Emergent: no Anesthetic plan: proceed Anesthesia type and monitoring: general GIVS and standard monitoring Results Review: All pre-operative results and documents have been reviewed as part of the pre-operative evaluation. Informed Consent: The patient's anesthetic plan and its attendant risks and benefits were discussed with the patient/family/POA. Questions were solicited and answers provided to the satisfaction of the patient/family/POA.
[2023-11-18 08:19] VITALS: BMI 30.1
[2023-11-18 08:23] VITALS: BP 132/93; PULSE 79; RESP 18; TEMP 36.6; O2SAT 99
[2023-11-18] MEDS: LACTATED RINGERS 1,000 ML 150 ML IV CONT (08:34)
--- NOTE | 2023-11-18 08:40 | PM.HPGS ---
History of Present Illness History of Present Illness Consent: Risks, benefits, and alternatives have been discussed and questions answered. Patient agrees to proceed with procedure. Chief complaint: Crohns Disease Narrative: Everett Yarbrough is a 38 year old male presents for colonoscopy. Has a history of Crohn's disease. This was diagnosed at age 12. Patient did have symptoms several years prior to his diagnosis. Intimately had resection of his terminal ileum. This failed to give adequate response. For the last 6-7 years patient has been maintained Stelara. He states symptoms are under control. He does have loose stools frequently. He denies any blood in his stools. He denies any abdominal pain. Colonoscopy most recently done 3 years ago [place] [address] Schwarz. Apparently everything was stable at that time. Patient's family history is noncontributory. Patient presents today for screening exam. Review of Systems Review of Systems: All systems reviewed & are unremarkable except as noted in HPI and below PMFSH Past Medical History Medical History (Updated 11/17/23 @ 12:10 by Maximo Spencer, ) Acne vulgaris Crohn's disease Crohn's disease of ileum Gastric ulcer High risk medication use HTN (hypertension) Hx of gastric ulcer IFG (impaired fasting glucose) Long-term current use of ustekinumab Seizure Surgical History Surgical History S/P colectomy ileal-colectomy Family History Family History Grandparent Cerebrovascular accident Family history of autoimmune disorder Mother Hypertension Father Family history of colitis Other Family history of gastrointestinal disorder Social History Social History Smoking status: Never smoker Second hand tobacco smoke exposure: No Alcohol intake: current Drinks per week: 2 Alcohol use details: occasionally Substance use: never Substance use type: does not use Lack of Transportation: No Lack of Food: Never True Current Housing: I Have Housing Concerned About Future Housing: No Difficulty Paying Gas/Electric Bills: No Difficulty Paying for Meds: No Currently Unemployed: No Education: Associate Degree Difficulty w/ Childcare or Family Care: No Living arrangements: with family Gender identity (if verbalized by the patient): Male Spiritual care concerns: No Meds Home Medications and Allergies Home Medications Medication Instructions Recorded Confirmed Type multivitamin 1 tablet PO DAILY 01/10/19 11/18/23 History mecobalamin (vitamin B12) 1,000 5,000 mcg PO DAILY 07/20/19 11/18/23 History mcg chewable tablet calcium 600 mg capsule 600 mg PO DAILY 12/06/19 11/18/23 History cholecalciferol (vitamin D3) 25 25 mcg PO DAILY 07/02/20 11/18/23 History mcg (1,000 unit) capsule rosuvastatin 10 mg tablet (Crestor) 10 mg PO DAILY #90 tabs 04/02/23 11/18/23 Rx ustekinumab 90 mg/mL subcutaneous See Rx Instructions .Route 08/24/23 11/18/23 Rx syringe (Stelara) .COMPLEX #1 mL lisinopril 20 mg tablet 20 mg PO DAILY #90 tabs 09/15/23 11/18/23 Rx doxycycline hyclate 50 mg capsule 50 mg PO DAILY PRN other 11/02/23 11/18/23 History Allergies Allergy/AdvReac Type Severity Reaction Status Date / Time No Known Allergies Allergy Verified 11/18/23 08:03 Vital Signs Vital Signs - 24 hr 11/18/23 08:23 Temperature 97.8 F Pulse Rate 79 Respiratory Rate 18 Blood Pressure 132/93 H Pulse Oximetry 99 Oxygen Delivery Room Air Exam Narrative: Physical exam reveals patient to be alert signs stable. HEENT exam is unremarkable. Patient is anicteric. Lungs are clear to auscultation and percussion. Heart is without murmur or extra sounds. Abdomen bowel sounds are present soft nontender with no organomegaly. Digital external will exam normal. Assessmen
[2023-11-18] MEDS: SIMETHICONE ORAL SUSPENSION 20 MG/0.3 ML 30 ML BOTTLE 0.6 ML IRRIGATION (09:55)
[2023-11-18 10:07] VITALS: BP 129/115; PULSE 91; RESP 20; O2SAT 100
[2023-11-18 10:17] VITALS: BP 123/75; PULSE 67; RESP 20; O2SAT 100
[2023-11-18 10:27] VITALS: BP 108/80; PULSE 70; RESP 20; O2SAT 100
--- NOTE | 2023-11-18 12:08 | WPDANESPN ---
Anes - Prog Note Post-Op Date/Time: 11/18/23 12:08 Cardiovascular status: normal Respiratory status: normal Airway patency: baseline Mental status: baseline Post-Op hydration status: normal Vital Signs: Last Vital Signs Temp 36.6 C 11/18/23 08:23 Pulse 70 11/18/23 10:27 Resp 20 11/18/23 10:27 BP 108/80 11/18/23 10:27 Pulse Ox 100 11/18/23 10:27 O2 Del Method Room Air 11/18/23 10:27 Pain Score (VAS): 0 I/O: Intake & Output 11/17/23 11/18/23 11/18/23 23:59 07:59 15:59 Intake Total 300 Balance 300 Post-procedural complaints: none Patient Feedback: Patient satisfied with anesthetic care. Other Findings: Patient vital signs back to baseline. Patient denies nausea and vomiting. Patient's pain under control. Patient OK for discharge.
== END 2023-11-18 10:33 | disposition home or self-care (01) ==
PROVIDERS: Visit Provider Internal Medicine Gastroenterology
PROC: 0DJD8ZZ Inspection of Lower Intestinal Tract, Via Natural or Artificial Opening Endoscopic (ICD-10-PCS; CPT 45378; principal; 2023-11-18 09:30)
DX: Z12.11 Encounter for screening for malignant neoplasm of colon (principal); K63.89 Other specified diseases of intestine; K64.8 Other hemorrhoids; Z87.19 Personal history of other diseases of the digestive system
CPT/HCPCS: 45378

== ENCOUNTER 2024-02-23 12:41 | Outpatient (CLI) | payer OTHER, SELFPAY ==
--- NOTE | ~2024-02-23 | MR_ITS ---
EXAMINATION: MR brain/brain stem wo/w con DATE: 02/23/2024 14:25 INDICATION: Headache TECHNIQUE: Magnetic resonance imaging (MRI) of the brain and brainstem was performed without and with 20 mL Multihance intravenous contrast. Sequences included sagittal and axial T1-weighted SE, axial d iffusion-weighted FS SE, axial T2*-weighted GRE, axial T2-weighted FLAIR, and axial T2-weighted FSE. Postcontrast axial and coronal T1-weighted SE was obtained. Apparent diffusion coefficient (ADC) maps were created. COMPARISON: 12/02/21 FINDINGS: There are no areas of restricted diffusion to suggest acute infarction. No intracranial hemorrhage or abnormal intracranial mass lesion. The previously seen focus of susceptibility artifact consistent w ith chronic hemorrhage in the right temporal lobe is not identified in the current study likely due t o the decrease sensitivity of the T2*-weighted GRE sequence relative to the prior SWAN sequence. Ther e are no intraparenchymal signal abnormalities seen on the other pulse sequences. The ventricles are symmetric and normal in size. There are no abnormal extra-axial fluid collections. Flow voids are see n in the cerebral arteries on the T2-weighted sequences consistent with their expected patency. Visua lized orbits and soft tissues are unremarkable. Mild mucosal thickening in the bilateral ethmoid sinu ses. Enhancement seen along a developmental venous anomaly in the right temporal lobe. There are no o ther areas of abnormal enhancement on the post contrast images. IMPRESSION: 1. 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 Otherwise normal brain with no acute intracranial process. Reviewed, dictated and finalized at location B. NCE DIRECTOR IMPRESSION: 1. Developmental venous anomaly in the right temporal lobe with suggestion of a ssociated cavernoma on the prior MR imaging. Otherwise normal brain with no acu te intracranial process.
== END 2024-02-23 12:42 | disposition home or self-care (01) ==
LOC: MICIMG 12:42
DX: G44.82 Headache associated with sexual activity (principal); R93.0 Abnormal findings on diagnostic imaging of skull and head, not elsewhere classified
CPT/HCPCS: 70553; A9577

== ENCOUNTER 2024-07-07 13:56 | Outpatient (CLI) | payer OTHER, SELFPAY ==
--- OUTSIDE RECORDS SUMMARY | 2024-07-07 13:59 | XMS_ITS | Clinical Summary ---
Author Organization [facility] Address [address] [address] Phone Care Team Providers Care Plug Shaper Hand Name Role Phone Hayden Mendieta MD Primary Care Provider [phone] Allergies No known active allergies Medications folic acid (FOLVITE) 1 MG Tablet Take 1 mg by mouth every morning. Active lisinopril (PRINIVIL, ZESTRIL) 20 MG Tablet Take by mouth daily. Active Calcium Carbonate-Vitami n D (CALCIUM 600/VITAMIN D) 600-400 MG-UNIT Chewable Tablet Take by mouth daily. Active cyanocobalamin (VITAMIN B-12) 1000 MCG/ML Solution 1 mL by Intramuscular route every 30 days. 1 mL 11 03/25/19 16 Active Additional Information Patient not taking.Reported on 06/21/2020 multiple vitamins-mineral s Tablet Take 1 Tab by mouth. 06/29/19 16 Active Calcium Carb-Cholecalcif denice 600-800 MG-UNIT Chewable Tablet Take by mouth. Activ e ustekinumab (Stelara) 90 MG/ML Solution Prefilled SyringeIndicatio ns:Crohn's Disease Inject 1 ml subcutaneous every 45 days for Crohn's disease Indications: Crohn's Disease 1 mL 5 05/10/19 21 Active Methotrexate, PF, 25 MG/0.5ML Solution Auto-injectorInd ications:Crohn's disease of small intestine without complication (HCC) 25 mg by Subcutaneous route once a week. 0.5 mL 06/22/19 21 Active Insulin Syringe-Needle U-100 (Safety Insulin Syringes) 27G X 1/2 1 ML Misc To be used with the methotrexate pf 25 mg/0.5 ml as directed 5 Each 3 07/16/19 21 Active omeprazole (PriLOSEC) 40 MG CAPSULE DELAYED RELEASEIndicatio ns:Chronic gastric ulcer without hemorrhage and without perforation TAKE 1 CAPSULE DAILY 90 Capsule 3 12/31/19 21 Active ergocalciferol (VITAMIN D) 64168 UNIT Capsule TAKE 1 CAPSULE ONCE A WEEK 12 Capsule 01/25/20 21 Active Active Problems Problem Noted Date Diagnosed Date High risk medication use 11/27/2019 Hiatal hernia 11/27/2019 Chronic gastric ulcer withou t hemorrhage and without perforation 11/27/2019 Crohn's disease Immunizations Immunization Administration Dates Next Due Influenza Vaccine 11/06/2016 Influenza Vaccine,unspecified Formulation 2011 TDAP Vaccine 05/22/2015 Family History Medical History Relation Name Comments Ulcerative Colitis Father Relation Name Status Comments Father Social History Tobacco Use Types Packs/Day Years Used Date Smoking Tobacco: Never Smokeless Tobacco: Never Tobacco Cessation:Counseling Given: No Alcohol Use Standard Drinks/Week Comments Yes 0 (1 standard drink = 0.6 oz pur e alcohol) socially Sexually Active Control Partners Comments Not Currently Sex and Gender Information Value Date Recorded Sex Assigned at Not on file Legal Sex Male 12:11 AM CDT Gender Identity Not on file Sexual Orientation Not on file 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 file Not on file Not on file Last Filed Vital Signs Vital Sign Reading Time Taken Comments Blood Pressure 118/72 06/21/2020 8:49 AM CDT Pulse 97 06/21/2020 8:49 AM CDT Temperature 36.7 C (98 F) 06/21/2020 8:49 AM CDT Respiratory Rate 18 05/09/2020 10:03 AM CDT Oxygen Saturation 99% 06/21/2020 8:49 AM CDT Inhaled Oxygen Concentration - - Weight 97.5 kg (215 lb) 06/21/2020 8:49 AM CDT Height 182.9 cm (6') 06/21/2020 8:49 AM CDT Body Mass Index 29.16 06/21/2020 8:49 AM CDT Plan of Treatment Health Maintenance Due Date Last Done Comments Hepatitis C Virus (HCV) Screening 1984 Hepatitis B Immunization (1 of 3 - 19+ 3-dose series) 07/25/2003 SARS-COV-2 Immunization (3 - Pfizer risk series) 07/26/2020 06/28/2020, 06/04/2020 Influenza Immunization (#1) 10/10/202310/10, 12/10/2011 Respiratory Syncytial Virus (RSV) Immunization (Adult) (1 - 1-dose 75+ series) 07/25/2059 DTaP/Tdap/Td Immunization Discontinued 05/22/2015 Meningococcal Immunization (ACWY) Aged Out No longer eligible based on patient's age to complete this topic Pneumococcal Immunization Combined Aged Out No longer eligible based on patient's age to complete this topic Rotavirus Immunization Aged Out No lo nger eligible based on patient's age to complete this topic Insurance Care Teams Plug Shaper Hand Relationship Specialty Start Date End Date Hayden Mendieta MD PCP - General Internal Medicine 06/30/16
--- OUTSIDE RECORDS SUMMARY | 2024-07-07 13:59 | XMS_ITS | Encounter Summary ---
Author Organization [facility] Address [address] [place] [address] Phone Care Team Providers Care Safety Person Name Role Phone Hayden Mendieta MD Primary Care Provider [phone] Reason for Visit * Reason Comments Medication Refill Encounter Details Date Type Department Care Team (Late st Contact Info) Description 02/06/2022 Refill [facility] - G[facility]enterology - [place] [address] [place] [address] Bethany Barragan Romnia, PAC [address] [place] [address] Medication Refill Social History Tobacco Use Types Packs/Day Years Used Date Smoking Tobacco: Never Smokeless Tobacco: Never Alcohol Use Standard Drinks/Week Comments Yes 0 [...] file Not on file Not on file documented as of this encounter Miscellaneous Notes * Telephone Encounter - Danielle Iraheta, RN - 02/06/2022 12:40 PM CST Per telephone encounter 03/17/2021, patient reported seeing 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
--- OUTSIDE RECORDS SUMMARY | 2024-07-07 13:59 | XMS_ITS | Encounter Summary ---
Author Organization [facility] Address [address] [place] [address] Care Team Providers Care Roll On Worker Name Role Phone Unavailable Primary Care Provider Unavailabl e Encounter Details Date Type Department Care Team (Late st Contact Info) Description 05/22/2024 Results Follow-Up [facility] [address] [place] [address] Penny Bowens MD [address] [place] [address] URINALYSIS WITH REFLEX MICROSCOPIC, MICROALBUMIN/CREATIN INE RATIO, RANDOM UR, INSULIN LEVEL, Additional followed-up results: 2 Social History Tobacco Use Types Packs/Day Years Used Date Smoking Tobacco: Never Smokeless Tobacco: Never Alcohol Use Standard Drinks/Week Comments Yes 1 (1 standard drink = 0.6 oz pur e alcohol) Sex and Gender Information Value Date Recorded Sex Assigned at Not on file Legal Sex Male 7:31 AM PROJECT ECONOMIST Gender Identity Not on file Sexual Orientation Not on file documented as of this encounter Miscellaneous Notes * Result Encounter Note - Penny Bowens MD - 06/26/2024 9:01 AM CDT Please call patient to give him lab results. Metabolic panel is normal except that ALT is still slightly elevated at 52. It is a little lower than last month. Lipid panel shows that triglycerides went up to 419. They were 236 last month. Insulin is above ideal at 13.1. YASSINE score is 3.00. This indicates insulin resistance. Please schedule patient a visit to discuss. Video visit is fine. * Result Encounter Note - Penny Bowens MD - 05/22/2024 7:51 AM CDT Urine tests were both normal. documented in this encounter Plan of Treatment Upcoming Encounters Date Type Department Care Team (Late st Contact Info) Description 08/16/2024 8:00 AM CDT Hospital Encounter [facility] [address] [facility] [address] [facility] [address] [place] [address] [place] [address] [address] 08/29/2024 8:00 AM CDT Clinical Support [facility] [employer] [place] [address] [place] [address] 10/19/2024 4:30 PM CDT Office Visit [facility] [id number] [place] [address] [place] [address] [place] [address] documented as of this encounter Visit Diagnoses Not on filedocumented in this encounter
--- OUTSIDE RECORDS SUMMARY | 2024-07-07 13:59 | XMS_ITS | Clinical Summary ---
Author Organization [facility] Address [address] [place] [address] Care Team Providers Care Coarse Wire Drawer Name Role Phone Hayden Mendieta MD Primary Care Provider [phone] Source Comments [facility] Affiliates and Associated Physician Practices is amultiple site organization consisting of ambulatory clinics and hospital sitesin [place], [place], [place] and [place]. This disclosure is being madepursuant to the Care Everywhere program and may not contain all information available regarding this patient. Last updated 17.[facility] Allergies No known active allergies Medications * Be aware that medications may not be up to date on this document. Alwaysverify current medications with the patient. lisinopril (Prinivil; Zestril) 20 MG tablet 4 Active rosuvastatin (Crestor) 10 MG tablet 3 Active Stelara 90 MG/ML prefilled syringe 4 Active doxycycline hyclate (Vibramycin) 100 MG capsule TAKE 1 CAPSULE BY MOUTH DAILY. 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 Gender Identity Not on file Sexual Orientation Not on file Last Filed Vital Signs Vital Sign Reading Time Taken Comments Blood Pressure 124/71 11/06/2016 7:48 AM CDT Pulse 83 11/06/2016 7:48 AM CDT Temperature 36.9 C (98.5 F) 11/06/2016 7:48 AM CDT Respiratory Rate 14 11/06/2016 7:48 AM CDT Oxygen Saturation 100% 11/06/2016 7:48 AM CDT Inhaled Oxygen Concentration - - Weight 95.3 kg (210 lb) 03/10/2023 2:50 PM HORSE RIDING COACH OR INSTRUCTOR Height 182.9 cm (6') 03/10/2023 2:50 PM HORSE RIDING COACH OR INSTRUCTOR Body Mass Index 28.48 03/10/2023 2:50 PM HORSE RIDING COACH OR INSTRUCTOR Plan of Treatment Health Maintenance Due Date Last Done Comments HIV SCREENING 07/25/1999 HEPATITIS C SCREENING 07/20/2002 DTAP/TDAP/TD VACCINES (1 - Tdap) 07/25/2003 HEPATITIS B VACCINE (1 of 3 - 19+ 3-dose series) 07/25/2003 COVID-19 VACCINE ( - 2023-2 5 season) 2023 DEPRESSION SCREENING 02/09/2024 03/10/2023 INFLUENZA VACCINE (Season Ended) 2024 11/07/19 17 ZOSTER VACCINE (1 of 2) 2034 HIB VACCINE Aged Out No longer eligi ble based on patient's age to complete this topic HPV VACCINE Aged Out No longer eligi ble based on patient's age to complete this topic MENINGOCOCCAL (Group B) VACC INE SHARED DECISION-MAKING Aged Out No longer eligibl e based on patient's age to complete this topic MENINGOCOCCAL GROUPS A/C/Y/W VACCINE Aged Out No longer eligible b ased on patient's age to complete this topic PNEUMOCOCCAL VACCINE Aged Out No long er eligible based on patient's age to complete this topic Insurance [facility] Care Teams Coarse Wire Drawer Relationship Specialty Start Date End Date Hayden Mendieta MD PCP - General Internal Medicine 07/19/15
--- OUTSIDE RECORDS SUMMARY | 2024-07-07 13:59 | XMS_ITS | Continuity of Care Document ---
Author Organization [facility] Address [address] [place] [address] Phone Care Team Providers Care Core Baker Name Role Phone Schumacher OD, Robert Unavailable Unavailable Advance Directives Directive Yes / No Effective Date File Name No Information Encounters Encounter Description Practice Location Reason(s) For Visit Diagnoses Date Provider Providers Copied on Encounter [facility] [id number] [place] [address] [address] [place], [place], [id number], [place] tel:[phone] [facility] [address] No Information Oct-0 4-200 1 Schumacher OD Robert. [address] , [address], [place], [address], [place]. tel:[phone] Family History Family Member Type Diagnosis Age At Onset No Information Payers Payer name Insurance type Covered green party ID Authoriza tion(s) No Information Social [...]
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
[2024-07-07 14:44] LABS: Hemoglobin 14.5 g/dL (14.0-18.0); Mean Corpuscular HGB Conc 33.7 g/dl (32-36); Mean Corpuscular Hemoglobin 29.7 pg (26-34); Mean Corpuscular Volume 87.9 fl (80-100); Mean Platelet Volume 10.6 fl (7.4-10.4); Platelet Count Result 214 k/mm3 (150-375); Red Blood Count 4.89 M/mm3 (4.6-6.20); Red Cell Distribution Width 13.2 % (11.5-14.5); White Blood Count 6.3 K/mm3 (4.5-10.0)
[2024-07-07 15:12] LABS: Erythrocyte Sedimentation Rate 5 mm/hr (0-20)
[2024-07-07 15:19] LABS: Alanine Aminotransferase 54 U/L (6-50); Albumin Level 4.8 g/dL (3.5-5.1); Alkaline Phosphatase 67 U/L (38-126); Anion Gap 9 mmol/L (4-12); Aspartate Amino Transferase 40 U/L (17-59); Bilirubin,Total 0.5 mg/dL (0.2-1.3); Blood Urea Nitrogen 14 mg/dL (9-20); CRP < 0.5 mg/dL (<1.0); Calcium 9.9 mg/dL (8.4-10.2); Carbon Dioxide 25 mmol/L (22-30); Chloride 107 mmol/L (98-107); Estimated Glomerular Filt Rate > 60; Glucose 108 mg/dL (65-110); Potassium 4.1 mmol/L (3.4-5.0); Sodium 141 mmol/L (137-145)
[2024-07-07 15:40] LABS: Hepatitis B Surface Antigen Negative (Negative)
[2024-07-07 15:52] LABS: Vitamin B12 > 1000.0 pg/mL (239-931)
[2024-07-07 15:58] LABS: Hepatitis B Surface Anti Res Negative
[2024-07-07 16:06] LABS: Folic Acid 16.5 ng/mL (2.76->20)
[2024-07-09 04:37] LABS: Hepatitis B Core Ab Total NON-REACTIVE (NON-REACTIVE)
[2024-07-11 15:23] LABS: NIL 0.01 IU/mL; Quantiferon TB Plus, 1T NEGATIVE (NEGATIVE)
[2024-07-12 10:34] LABS: Vitamin D 1,25 (OH)2 Total 44 pg/mL (18-72); Vitamin D2 1,25 (OH)2 <8 pg/mL; Vitamin D3 1,25 (OH)2 44 pg/mL
== END 2024-07-07 13:57 | disposition home or self-care (01) ==
LOC: ANHLAB 13:57
PROVIDERS: Visit Provider Nurse Practitioner
DX: K50.90 Crohn's disease, unspecified, without complications (principal); E53.8 Deficiency of other specified B group vitamins; Z79.899 Other long term (current) drug therapy; Z90.49 Acquired absence of other specified parts of digestive tract
CPT/HCPCS: 36415; 80053; 82607; 82652; 82728; 82746; 85027; 85652; 86140; 86480; 86704; 86706; 87340

== ENCOUNTER 2024-08-02 09:35 | Outpatient (CLI) | payer OTHER, SELFPAY ==
--- NOTE | ~2024-08-02 | US_ITS ---
Limited ABDOMINAL ULTRASOUND (Doppler ultrasound interrogation techniques used as needed for this exa m.) Ordering provider: Fozia Vidales APRN History: . elevated LFT, crohn's . Comparison: None. FINDINGS: PANCREAS: Normal echotexture and size of the visualized portions. PORTAL VEIN: Hepatopedal flow demonstrated. LIVER: Normal size and increased echogenicity. No focal hepatic lesions or perihepatic fluid collecti ons are identified. BILIARY DUCTS: No intra or extrahepatic biliary dilation. Common bile duct measures 3.9 mm in diamete r which is normal for patient's age. GALLBLADDER: Status post cholecystectomy. FREE FLUID: None visualized within the upper abdomen. IMPRESSION: Fat infiltration of the liver.. Otherwise, normal limited abdominal ultrasound. Reviewed, dictated and finalized at location A.
== END 2024-08-02 09:36 | disposition home or self-care (01) ==
PROVIDERS: Visit Provider Nurse Practitioner
DX: R74.01 Elevation of levels of liver transaminase levels (principal); K50.90 Crohn's disease, unspecified, without complications; K76.0 Fatty (change of) liver, not elsewhere classified
CPT/HCPCS: 76705

== ENCOUNTER 2024-09-05 11:21 | Outpatient (CLI) | payer OTHER, SELFPAY ==
--- NOTE | ~2024-09-05 | XR_ITS ---
XR knee RT 3V 09/05/2024 11:44 INDICATION: Right knee pain PROCEDURE: 3 views right knee COMPARISON: No prior studies for comparison. FINDINGS: Fracture, dislocation or subluxation is not identified. The soft tissues appear within norm al limits. No foreign bodies are identified. IMPRESSION: 1: NO ACUTE BONE OR JOINT ABNORMALITY IDENTIFIED. Reviewed, dictated and finalized at location A.
== END 2024-09-05 11:22 | disposition home or self-care (01) ==
LOC: MICIMG 11:23
PROVIDERS: PCP Family Medicine; Visit Provider Family Medicine
DX: M25.561 Pain in right knee (principal)
CPT/HCPCS: 73562

== ENCOUNTER 2024-11-06 07:53 | Outpatient (CLI) | payer OTHER, SELFPAY ==
--- OUTSIDE RECORDS SUMMARY | 2000-11-10 19:00 | XMS_ITS | Continuity of Care Document ---
Author Organization [facility] Address [address] [facility] [address] [place] [address] Phone Care Team Providers Care Loan Review Manager Name Role Phone Schumacher OD, Robert Unavailable Unavailable Advance Directives Directive Yes / No Effective Date File Name No Information Encounters Encounter Description Practice Location Reason(s) For Visit Diagnoses Date Provider Providers Copied on Encounter [facility], [id number] [place] [address] [address], [place], [place], [id number], [place] tel:[phone] [facility] [address] [place] No Information Oct-0 4-200 1 Schumacher OD Robert. [address] , [address], [place], [address], [place]. tel:[phone] Family History Family Member Type Diagnosis Age At Onset No Information Payers Payer name Insurance type Covered alliance party ID Authoriza tion(s) No Information Social History Type Description Quantity Date Captured Comments Sex Male Smoking Status No Information Chief Complaint And Reason For Visit No Information Reason For Referral Reason For Referral No Information History Of Present Illness Encounter Date Complaint History Of Prese nt Illness No Information Functional Status Date Functional Assessmen t No Information Instructions Date Instruction Additional Infor mation No Information Assessments Type Assessment Date No Information Patient Care Teams Name Effective Dates (start - stop) Status Members No Information
--- OUTSIDE RECORDS SUMMARY | 2024-11-06 08:03 | XMS_ITS | Encounter Summary ---
Author Organization [facility] Address [address] [facility] [place] [address] Phone Care Team Providers Care Siebel Architect Name Role Phone Hayden Mendieta MD Primary Care Provider [phone] Reason for Visit * Reason Comments Medication Refill Encounter Details Date Type Department Care Team (Late st Contact Info) Description 02/06/2022 Refill [facility] - Gastroenterology - [place] [address] [place] [address] Bethany Barragan Romina, PAC [address] [place] [address] Medication Refill Social History Tobacco Use Types [...] encounter 03/17/2021, patient reported seeing Dr. Schwarz. 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
--- OUTSIDE RECORDS SUMMARY | 2024-11-06 08:03 | XMS_ITS | Encounter Summary ---
Author Organization [facility] Address [address] [place] [address] Care Team Providers Care Net Architect Name Role Phone Unavailable Primary Care Provider Unavailabl e Encounter Details Date Type Department Care Team (Latest Contact Info) Description 09/06/2024 Results Follow-Up [facility] at [address] [address] Idalmis Hinds NP [address] [place] [address] COMPREHENSIVE METABOLIC PANEL, INSULIN LEVEL, LIPID PANEL Social History Tobacco Use Types Packs/Day Years Used Date Smoking Tobacco: Never Smokeless Tobacco: Never Alcohol Use Standard Drinks/Week Comments Yes 1 (1 standard drink = 0.6 oz pur e alcohol) Sex and Gender Information Value Date Recorded Sex Assigned at Not on file 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 Liver enzymes slightly elevated. Lipid panel demonstrated significantly elevated triglycerides. Insulin normal. Please offer patient an appointment to discuss abnormal labs and management. 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
--- OUTSIDE RECORDS SUMMARY | 2024-11-06 08:03 | XMS_ITS | Clinical Summary ---
Author Organization [facility] Address [address] [address] Phone Care Team Providers Care Hollow Handle Bench Worker Name Role Phone Hayden Mendieta MD Primary Care Provider [phone] Allergies No known active allergies Medications folic [...] ications:Crohn's disease of small intestine without complication 25 mg by Subcutaneous route once a [...] 3 12/31/19 21 Active ergocalciferol (VITAMIN D) 43156 UNIT Capsule TAKE 1 CAPSULE ONCE A [...] of 3 - 19+ 3-dose series) 07/25/2003 Human Papillomavirus (HPV) Immunization (1 - 3-dose SCDM series) 07/25/2011 SARS-COV-2 Immunization (3 - Pfizer risk series) 07/26/2020 06/28/2020, 06/04/2020 Influenza Immunization (#1) 10/09/202410/10, 12/10/2011 Respiratory Syncytial Virus (RSV) Immunization (Adult) [...] to complete this topic Insurance Care Teams Hollow Handle Bench Worker Relationship Specialty Start Date End Date Hayden Mendieta MD PCP - General Internal Medicine 06/30/16
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
[2024-11-06 09:08] LABS: Alanine Aminotransferase 54 U/L (6-50); Albumin Level 4.4 g/dL (3.5-5.1); Alkaline Phosphatase 70 U/L (38-126); Aspartate Amino Transferase 35 U/L (17-59); Bilirubin,Total 0.8 mg/dL (0.2-1.3); Total Protein 6.9 g/dL (6.3-8.2)
== END 2024-11-06 07:54 | disposition home or self-care (01) ==
LOC: ANHLAB 07:55
PROVIDERS: PCP Family Medicine; Visit Provider Nurse Practitioner
DX: K50.90 Crohn's disease, unspecified, without complications (principal); R74.01 Elevation of levels of liver transaminase levels
CPT/HCPCS: 36415; 80076